=== PATIENT | female | born 1985 | race African-American/Black ===

== ENCOUNTER 2022-01-22 13:45 | Emergency (ER) | payer OTHER ==
[~2022-01-22] VITALS: Ht 167.6 cm; Wt 77.0 kg
[2022-01-22 13:56] VITALS: BP 125/77
== END 2022-01-22 17:11 | disposition left against medical advice (07) ==
LOC: ER 13:45
DX: Z53.21 Procedure and treatment not carried out due to patient leaving prior to being seen by health care provider (principal)